=== PATIENT | male | born 1955 | race African-American/Black ===

== ENCOUNTER 2024-02-10 17:10 | Inpatient (IN) | payer OTHER ==
[~2024-02-10] VITALS: Ht 190.5 cm; Wt 86.2 kg
--- NOTE | 2024-02-10 17:30 | NUR ---
TRANSFER OF CARE REPORT GIVEN TO ANN MARIE PRAJAPATI. NO FURTHER QUESTIONS ASKED. VSS, BILATERAL RAILS ARE UP. NO COMPLAINTS.
[2024-02-10 17:57] VITALS: BP 91/54; PULSE 91; RESP 0; TEMP 97.4; O2SAT 98
--- NOTE | 2024-02-10 18:20 | NUR ---
TO ER BED 7
--- NOTE | 2024-02-10 18:51 | NUR ---
68 yo male [place] urinary pain, headache, confusion/agitated pmh- stroke,htjn, dm,prostate CA, Bladder CA NKA
[2024-02-10] MEDS ORDERED: cefTRIAXone 1,000 MG VIAL ONE ×2 (19:00→19:21)
[2024-02-10] MEDS: NACL 0.9% 1,000 ML IV SCH ×2 (19:25→23:48)
[2024-02-10] MEDS: cefTRIAXone 1,000 MG in DEXT 5% MINI-BAG PLUS 50 ML IV ONE (19:26)
[2024-02-10 19:27] LABS: BASOPHILS % (AUTO) 0.3 % (0.0-2.0); EOSINOPHILS # (AUTO) 0.2 K/uL (0-0.4); EOSINOPHILS % (AUTO) 1.4 % (0.0-4.0); HEMATOCRIT 42.6 % (36-52); HEMOGLOBIN 13.9 g/dL (12.0-18.0); LYMPHOCYTES # (AUTO) 2.2 K/uL (2.0-11.5); LYMPHOCYTES % (AUTO) 18.7 % (20.5-51.1); MEAN CORPUSCULAR HEMOGLOBIN 30 pg (27-31); MEAN CORPUSCULAR HGB CONC 33 g/dL (33-37); MEAN CORPUSCULAR VOLUME 93.2 fL (80-94); MONOCYTES # (AUTO) 1.2 K/uL (0.8-1.0); NEUTROPHILS # (AUTO) 8.1 K/uL (1.8-7.7); NEUTROPHILS % (AUTO) 69.6 % (42.2-75.2); PLATELET COUNT (AUTO) 258 K/uL (140-450); RED BLOOD CELL COUNT(AUTO) 4.57 MIL/uL (4.20-6.10); RED CELL DISTRIBUTION WIDTH 13.5 % (11.6-13.7); WHITE BLOOD COUNT (AUTO) 11.6 K/uL (4.8-10.8)
[2024-02-10 19:29] LABS: APPEARANCE,URINE CLOUDY (CLEAR); BILIRUBIN,URINE 1+ (NEGATIVE); BLOOD, URINE 3+ (NEGATIVE); COLOR,URINE GREEN (YELLOW); LEUKOCYTE ESTERASE ,URINE 2+ (NEGATIVE); NITRITE, URINE NEGATIVE (NEGATIVE); PROTEIN,URINE 3+ (NEGATIVE); UGLUCOSE NEGATIVE (NEGATIVE); UROBILINOGEN,URINE 0.2 EU/dL (0.2 - 1)
[2024-02-10 19:38] LABS: BACTERIA,URINE 10-30 (MOD) /HPF (None Seen); ICTOTEST NEGATIVE (NEGATIVE); MUCUS,URINE 1+ /LPF (None Seen); RBC,URINE TOO NUMEROUS TO COUN /HPF (0-5); SQUAMOUS EPITHELIAL CELL,UR 0-3 (FEW) /LPF (0-3 (FEW)); WBC,URINE TOO MANY TO COUNT /HPF (0-5)
[2024-02-10 19:39] LABS: ANION GAP 17.9 (8-16); CALCIUM 8.8 mg/dL (8.5-10.1); CARBON DIOXIDE 17.9 mmol/L (21-32); CREATININE 1.3 mg/dL (0.6-1.3); POTASSIUM 3.8 mmol/L (3.5-5.1)
[2024-02-10 19:41] LABS: INR 1.08 (0.8-1.2); PARTIAL THROMBOPLASTIN TIME 27.1 secs (22-35.6); PROTHROMBIN TIME 11.3 secs (10.8-13.4)
[2024-02-10 19:49] LABS: LACTIC ACID 2.2 mmol/L (0.4-2.0)
[2024-02-10 19:56] LABS: ALANINE AMINOTRANSFERASE 20 U/L (12-78); ALKALINE PHOSPHATASE 62 U/L (50-136); ASPARTATE AMINOTRANSFERASE 15 U/L (15-37); BILIRUBIN,DIRECT 0.1 mg/dL (0.0-0.3); TOTAL BILIRUBIN 0.3 mg/dL (0.0-1.0); TOTAL PROTEIN, SERUM 7.6 g/dL (6.4-8.2)
[2024-02-10] MEDS: NACL 0.9% 1,000 ML IV ONE ×2 (22:05)
--- NOTE | 2024-02-10 22:11 | NUR ---
INFORMED SHE WILL GOING HOME FOR THE NIGHT.
--- NOTE | 2024-02-10 22:12 | NUR ---
LAB AT BEDSIDE.
[2024-02-10] MEDS ORDERED: KCL 20 MEQ IN 100 mL PREMIX 200 ML IV PRN (22:25)
[2024-02-10] MEDS ORDERED: ACETAMINOPHEN 325 MG TAB PO PRN (22:25)
[2024-02-10] MEDS ORDERED: MAGNESIUM OXIDE 400 MG TAB PO PRN (22:25)
[2024-02-10] MEDS ORDERED: HYDROcodone/APAP 5/325 MG 1 TAB TAB PO PRN (22:25)
[2024-02-10] MEDS ORDERED: ONDANSETRON 4 MG/2 ML VIAL IVP PRN (22:25)
[2024-02-10] MEDS ORDERED: POTASSIUM CHLORIDE 10 MEQ TABER PO PRN (22:25)
[2024-02-10] MEDS ORDERED: MAG SULF 2000 MG/WATER PREMIX 50 ML IV PRN (22:25)
[2024-02-10] MEDS ORDERED: MORPHINE SULFATE 4 MG/ML SYR IVP PRN (22:25)
--- NOTE | 2024-02-10 23:17 | NUR ---
CALLED GABRIEL PRAJAPATI AND GAVE REPORT - PT TO GO TO MED/SURG ROOM 124A
--- NOTE | 2024-02-10 23:25 | NUR ---
Patient will be admitted to care of MD ALLEN. Admited to MED/SURG. Will go to [id number]. Belongings list completed. Report to GABRIEL PRAJAPATI.
[2024-02-10 23:28] VITALS: PULSE 83; RESP 18; O2SAT 96
--- NOTE | 2024-02-10 23:28 | NUR ---
PATIENT ADMITTED FROM ED FOR TRANSFER OF CARE, PATIENT CAME VIA GURNEY, TRANSFERRED TO BED X 4 STAFF, PATIENT IS AWAKE, ALERT AND ORIENTED X2, ADMITTING DIAGNOSIS UTI/AMS, SKIN CHECK DONE, SKIN IS INTACT, MRSA SWAB DONE, VITALS TAKEN, NO S/S OF DISTRESS NOTED, IVF STARTED, BED IN LOW AND LOCKED POSITION, CALL LIGHT WITHIN REACH.
--- NOTE | 2024-02-10 23:58 | NUR ---
SCHEDULED IV ANTIBIOTIC GIVEN ORDERED.
[2024-02-11] MEDS: cefTRIAXone 1,000 MG VIAL ONE (00:04)
--- NOTE | 2024-02-11 03:08 | NUR ---
PATIENT IS ASLEEP, NO S/S OF DISTRESS NOTED, ALL SAFETY MEASURES IN PLACE.
[2024-02-11 04:00] VITALS: BP 99/58; PULSE 81; RESP 18; TEMP 96.8; O2SAT 98
--- NOTE | 2024-02-11 07:03 | NUR ---
ENDORSED PATIENT TO DAY NURSE FOR CONTINUITY OF CARE. PATIENT IS STABLE.
--- NOTE | 2024-02-11 07:10 | NUR ---
RECEIVED REPORT FROM NIGHT NURSE, PATIENT AWAKE, AOX2, ROOM AIR, CCHO DIET, WITH FC, NS X 80ML/HR ON RIGHT AC G22, SAFETY PRECAUTIONS IN PLACE, CALL LIGHT WITHIN REACH.
[2024-02-11 08:00] VITALS: BP 124/85; PULSE 76; RESP 18; TEMP 97.7; O2SAT 97
--- NOTE | 2024-02-11 09:09 | NUR ---
PATIENT HAS BEEN SCREENED AND CATEGORIZED MODERATE NUTRITION RISK. PATIENT WILL BE SEEN WITHIN 3-5 DAYS OF ADMISSION. 02/13/24 02/15/[address]
[2024-02-11] MEDS: DOCUSATE SODIUM 100 MG GELCAP PO SCH (09:27)
[2024-02-11 12:00] VITALS: BP 124/85; PULSE 76; RESP 18; TEMP 97.7; O2SAT 97
[2024-02-11] MEDS ORDERED: NACL 0.9% 500 ML IV SCH (14:15)
--- NOTE | 2024-02-11 15:00 | NUR ---
PATIENT AWAKE, NO DISTRESS NOTED, SAFETY PRECAUTIONS IN PLACE, CALL LIGHT WITHIN REACH
[2024-02-11 16:00] VITALS: BP 119/69; PULSE 69; RESP 18; TEMP 98.1; O2SAT 98
--- NOTE | 2024-02-11 19:25 | NUR ---
GAVE REPORT TO NIGHT NURSE FOR CONTINUITY OF CARE, PATIENT STABLE
--- NOTE | 2024-02-11 19:26 | NUR ---
REPORT GIVEN BY AM NURSE GLORY RN FOR CONTINUITY OF CARE, PT AWAKE, ALERTX2, SPEECH MUMBLED AT TIMES, RESPIRATION EQUAL, NON LABORED, ROOM AIR, F/C VIA GRAVITY WITH CLEAR YELLOW URINE NOTED, NS @80ML/HR TO RIGHT AC 22G BED IN LOWEST POSITION, RAILS UPX2, COMMUNICATION BOARD UPDATED, WILL CONTINUE FREQUENT ROUNDS, WILL CONTINUE TO MONITOR,[email or web address]
[2024-02-11 20:00] VITALS: BP 131/89; PULSE 75; RESP 19; TEMP 97.5; O2SAT 97
--- NOTE | 2024-02-11 20:00 | NUR ---
PT AWAKE, ALERT X2, SPEECH MUMBLED AT TIMES, RESPIRATION EQUAL, NON LABORED, ROOM AIR, NS @ 80ML/HR TO RIGHT AC 22G, FLUSHED WITH NS,F/C VIA GRAVITY WITH YELLOW URINE NOTED, BED IN LOWEST POSITION, RAILS UPX3, CALL LIGHT WITHIN REACH, COMMUNICATION BOARD UPDATED, WILL CONTINUE FREQUENT ROUNDS, WILL CONTINUE TO MONITOR.[email or web address]
--- NOTE | 2024-02-11 22:00 | NUR ---
PT REFUSED MEDICATION, EDUCATION OF MEDICATION GIVEN PT CONTINUED TO REFUSE.[email or web address]
[2024-02-12 00:12] VITALS: PULSE 75; RESP 19; O2SAT 97
--- NOTE | 2024-02-12 02:00 | NUR ---
PT SLEEPING, RESPIRATION EQUAL, NON LABORED, NO S/S OF DISTRESS NOTED, CALL LIGHT WITHIN REACH.[email or web address]
[2024-02-12 04:00] VITALS: BP 136/82; PULSE 79; RESP 18; TEMP 97.6; O2SAT 99
--- NOTE | 2024-02-12 05:22 | NUR ---
MOVED PT TO ROOM 125A, PT TOLERATED ACTIVITY WELL, NO S/S OF DISTRESS NOTED.[email or web address]
--- NOTE | 2024-02-12 06:26 | NUR ---
PT REFUSED BLOOD DRAW AT THIS TIME, ENCOURAGED, PT BEGAN YELLING.[email or web address]
--- NOTE | 2024-02-12 07:46 | NUR ---
REPORT GIVEN TO AM NURSE SNOWDEN RN FOR CONTINUITY OF CARE.[email or web address]
--- NOTE | 2024-02-12 07:50 | NUR ---
RECEIVED REPORT FROM TRUCK MANAGER NURSE FOR PATIENT CONTINUITY OF CARE. PATIENT IS RESTING IN BED, AWAKE AND STABLE. NO SIGNS OF DISTRESS, NO COMPLAINTS OF PAIN. CALL LIGHT IS WITHIN REACH. ALL REQUESTS MET.
[2024-02-12 08:00] VITALS: BP 143/96; PULSE 72; RESP 20; TEMP 97.4; O2SAT 98
[2024-02-12 09:09] LABS: BASOPHILS % (AUTO) 0.4 % (0.0-2.0); EOSINOPHILS # (AUTO) 0.2 K/uL (0-0.4); EOSINOPHILS % (AUTO) 2.8 % (0.0-4.0); HEMATOCRIT 41.1 % (36-52); HEMOGLOBIN 13.6 g/dL (12.0-18.0); LYMPHOCYTES % (AUTO) 24.1 % (20.5-51.1); MEAN CORPUSCULAR HEMOGLOBIN 31 pg (27-31); MEAN CORPUSCULAR HGB CONC 33 g/dL (33-37); MEAN CORPUSCULAR VOLUME 92.2 fL (80-94); MONOCYTES # (AUTO) 0.6 K/uL (0.8-1.0); MONOCYTES % (AUTO) 7.4 % (1.7-9.3); NEUTROPHILS # (AUTO) 5.4 K/uL (1.8-7.7); NEUTROPHILS % (AUTO) 65.3 % (42.2-75.2); PLATELET COUNT (AUTO) 245 K/uL (140-450); RED BLOOD CELL COUNT(AUTO) 4.46 MIL/uL (4.20-6.10); RED CELL DISTRIBUTION WIDTH 13.5 % (11.6-13.7); WHITE BLOOD COUNT (AUTO) 8.3 K/uL (4.8-10.8)
[2024-02-12 09:29] LABS: ALBUMIN 2.9 g/dL (3.4-5.0); ANION GAP 12.7 (8-16); CALCIUM 8.9 mg/dL (8.5-10.1); CREATININE 0.8 mg/dL (0.6-1.3); MAGNESIUM 1.5 mg/dL (1.8-2.4); POTASSIUM 3.7 mmol/L (3.5-5.1); TOTAL BILIRUBIN 0.4 mg/dL (0.0-1.0); TOTAL PROTEIN, SERUM 7.3 g/dL (6.4-8.2)
--- NOTE | 2024-02-12 09:50 | NUR ---
ASSISTED PATIENT WITH SCHEDULED MEDICATIONS. PATIENT IS RESTING IN BED, AWAKE AND STABLE. NO SIGNS OF DISTRESS, NO COMPLAINTS OF PAIN. CALL LIGHT IS WITHIN REACH. ALL REQUESTS MET.
[2024-02-12 12:00] VITALS: BP 134/86; PULSE 74; RESP 19; TEMP 98.1; O2SAT 99
--- NOTE | 2024-02-12 12:14 | NUR ---
CALLED MIGUELANGEL JASBIR [phone] AND INFORMED HER THAT THE PHYSICAL THERAPY HAD SEEN PATIENT AND WAS RECOMMENDING HOME HEALTH PT. SHE STATED THAT SHE IS UNABLE TO TAKE CARE OF PATIENT AT HOME AND ASKED IF WE CAN SEND INFO TO [facility] [phone]. SHE SAID TO CALLED SISTER RANJEET VALLE [phone] AND SHE AGREED JUST WANTED ME TO TELL SNF TO REALLY ENCOURAGE PATIENT TO DO AND BE PUSHED AT THERAPY. PER SERINA SHE WANTED SISTER RANJEET TO BE ADDED TO NOK. Addendum: 02/12/24 at 1449 by ALE SRINIVASAN RECEIVED CALL FROM MARCO AT [facility] [phone] LOCATED AT [address] [place], [place] [id number]. PATIENT WILL GO TO ROOM 136B UNDER DR MARTINEZ. TRANSPORT WAS ARRANGED FOR TOMORROW AROUND 1200 WITH [facility] [phone] IF PATIENT IS NOT READY PLEASE CALL AND CANCEL OF CHANGE TIME. IF THERE ARE ANY PROBLEMS PLEASE CALL MARCO FROM [facility] [phone] SO SHE CAN ASSIST GETTING PATIENT OVER THERE AND RE FAX UPDATED CLINICALS TO [phone]. PTN SERINA [phone] AWARE OF ABOVE INFO BUT PLEASE CONTACT UPON DISCHARGE
--- NOTE | 2024-02-12 14:05 | NUR ---
ASSISTED PATIENT WITH REPOSITIONING AND ADLS. PATIENT IS RESTING IN BED, AWAKE AND STABLE. NO SIGNS OF DISTRESS, NO COMPLAINTS OF PAIN. CALL LIGHT IS WITHIN REACH. ALL REQUESTS MET.
[2024-02-12 16:00] VITALS: BP 143/89; PULSE 78; RESP 18; TEMP 97.8; O2SAT 98
--- NOTE | 2024-02-12 16:40 | NUR ---
ASSISTED PATIENT WITH REPOSITIONING, ADLS AND NOURISHMENTS. PATIENT IS RESTING IN BED, AWAKE AND STABLE. NO SIGNS OF DISTRESS, NO COMPLAINTS OF PAIN. CALL LIGHT IS WITHIN REACH. ALL REQUESTS MET.
--- NOTE | 2024-02-12 19:39 | NUR ---
ENDORSED PATIENT TO DIRECTOR POWER NURSE FOR CONTINUITY OF CARE. PATIENT IS RESTING IN BED, AWAKE AND STABLE. NO SIGNS OF DISTRESS, NO COMPLAINTS OF PAIN. CALL LIGHT IS WITHIN REACH. ALL REQUESTS MET.
--- NOTE | 2024-02-12 19:39 | NUR ---
REPORT GIVEN BY AM NURSE BE FOR CONTINUITY OF CARE, PT AWAKE, ALERT, ORIENT TO NAME, SPEECH SLURRED,RESPIRATION EQUAL, NON LABORED, ROOM AIR, F/C DRAINING VIA GRAVITY WITH YELLOW URINE NOTED, PT REFUSED IVF, PT BEGAN YELLING, PULLING AT IV, RIGHT AC, 22G. EDUCATE PT ON IV CARE, IVF REMOVED, PT YELLING, [employer] CALLED TO ASSIST WITH PT, BED IN LOWEST POSITION, RAILS UP X3, CALL LIGHT WITHIN REACH, COMMUNICATION BOARD UP DATED, WILL CONTINUE FREQUENT ROUNDS, WILL CONTINUE TO MONITOR.[email or web address]
[2024-02-12 20:00] VITALS: BP 130/90; PULSE 85; RESP 18; RESP 19; TEMP 97.8; O2SAT 93; O2SAT 97
--- NOTE | 2024-02-12 21:00 | NUR ---
PT REFUSED SCHEDULED MEDICATION [email or web address]
--- NOTE | 2024-02-12 22:00 | NUR ---
PT REFUSED SCHEDULED IV ABX [email or web address]
--- NOTE | 2024-02-13 01:06 | NUR ---
PT PULLED IV OUT PT BEGAN YELLING, REFUSED IV RESTART.[email or web address]
[2024-02-13 04:00] VITALS: RESP 19
--- NOTE | 2024-02-13 05:40 | NUR ---
PT REFUSED LAB DRAW, VITAL SIGNS, F/C CARE, WILL CONTINUE TO MONITOR.[email or web address]
--- NOTE | 2024-02-13 06:55 | NUR ---
PT REFUSED IV TO BE RESTARTED.[email or web address]
--- NOTE | 2024-02-13 07:38 | NUR ---
REPORT GIVEN TO AM NURSE SP RN FOR CONTINUITY OF CARE, CALL LIGHT WITHIN REACH.[email or web address]
--- NOTE | 2024-02-13 07:40 | NUR ---
RECEIVED REPORT FROM APPLIANCE SERVICE TECHNICIAN NURSE FOR PATIENT CONTINUITY OF CARE. PATIENT IS RESTING IN BED, AWAKE AND STABLE. NO SIGNS OF DISTRESS. NO COMPLAINTS OF PAIN. CALL LIGHT IS WITHIN REACH. ALL REQUESTS MET.
[2024-02-13 08:00] VITALS: BP 131/89; PULSE 85; PULSE 88; RESP 18; TEMP 97.8; TEMP 98.3; O2SAT 93; O2SAT 97
--- NOTE | 2024-02-13 09:40 | NUR ---
ATTEMPTED TO ASSIST PATIENT WITH SCHEDULED MORNING MEDICATIONS. PATIENT REFUSED MEDICATIONS. BLOOD DRAWS REFUSED PER PROPAGATOR LABORER. INFORMED DOCTOR. PATIENT IS RESTING IN BED, AWAKE AND STABLE. NO SIGNS OF DISTRESS. NO COMPLAINTS OF PAIN. CALL LIGHT IS WITHIN REACH. ALL REQUESTS MET.
--- NOTE | 2024-02-13 11:55 | NUR ---
ASSISTED PATIENT WITH ADLS AND NOURISHMENTS. PATIENT IS RESTING IN BED, AWAKE AND STABLE. NO SIGNS OF DISTRESS. NO COMPLAINTS OF PAIN. CALL LIGHT IS WITHIN REACH. ALL REQUESTS MET.
[2024-02-13 12:00] VITALS: RESP 18
[2024-02-13] MEDS ORDERED: CEPH-588 PO (12:42)
[2024-02-13 12:50] VITALS: BP 131/89; PULSE 88; RESP 18; TEMP 98.3
--- NOTE | 2024-02-13 13:25 | NUR ---
RECEIVED CONTACT FROM DOCTOR TO DISCHARGE PATIENT. CONTACTED [facility] IN [place] TO GIVE REPORT. NURSE REQUESTED TO KEEP PATIENT DIAZ INSERTED DUE TO HISTORY OF PANCREATIC CANCER. NURSE FROM [facility] WAS ALSO GIVEN PATIENT CONTACT JASBIR/, AND STATED THAT SHE WOULD CONTACT FAMILY. PROCESSED DISCHARGE DOCUMENTS. REMOVED IV AND ID BAND. INFORMED CHARGE NURSE AND APPRAISAL ANALYST. ASSISTED TRANSPORT COMPANY TO TRANSFER PATIENT INTO [facility]. PATIENT IS IN STABLE CONDITION. NO COMPLAINTS OF PAIN OR SIGNS OF DISTRESS. PATIENT WAS BROUGHT TO FRONT LOBBY EXIT WITH FRIEND AT SIDE. BELONGINGS GIVEN TO TRANSPORT COMPANY. PATIENT EXPRESSED THANKS FOR CARE.
== END 2024-02-13 14:20 | DRG 698 ==
LOC: MED 17:10 → MMU 22:25 → MTU 23:08 → MMU 02-12 05:20
PROVIDERS: ADMIT Hospitalist; ATTEND Hospitalist
DX: T83.511A Infection and inflammatory reaction due to indwelling urethral catheter, initial encounter (principal); E43 Unspecified severe protein-calorie malnutrition; G93.40 Encephalopathy, unspecified; N17.9 Acute kidney failure, unspecified; N39.0 Urinary tract infection, site not specified; E11.9 Type 2 diabetes mellitus without complications; I10 Essential (primary) hypertension; Z85.46 Personal history of malignant neoplasm of prostate; Z86.73 Personal history of transient ischemic attack (TIA), and cerebral infarction without residual deficits; Z68.23 Body mass index [BMI] 23.0-23.9, adult
CPT/HCPCS: 36415; 70450; 71045; 80048; 80053; 80076; 81001; 82948; 83605; 83735; 83880; 84484; 85025; 85610; 85730; 87040; 87081; 87086; 87186; 93005; 96365; 97163-GP; 97530; 99285; J0696; J1644; J7060